=== PATIENT | male | born 1935 | race Caucasian/White ===

== ENCOUNTER → 2017-06-03 | Outpatient (REF) | payer MEDICARE ==
[2016-12-14 12:57] VITALS: BMI 25.9
[~2017-06-03] MED LIST: ALBU8.5H12 IH; ALLO-1 PO; ALLO-2 PO; AZIT-9 PO; BEN100 PO; DIP25 PO; FLUT16SP19 NS; GLUC-135 PO; GUALA600 PO; ISR5 PO; LEVO5TAB7 PO; LOR7.5/325 PO; LORA10TA2 PO; MAX75 PO; MULT-1047 PO; NAPR-1043 PO; PRA20 PO; PRED-314 PO; SENN-284 PO; TAM4 PO; WAR2 PO; ZOL5 PO; [UNRECOGNIZED DRUG - CODE] PO; [UNRECOGNIZED DRUG - OTHER]; astelin
== END ==
LOC: ZZSENDIN 17:22
PROVIDERS: ATTEND Family Medicine
DX: L89.90 Pressure ulcer of unspecified site, unspecified stage (principal)
CPT/HCPCS: 87071; 87073; 87077; 87186; 87205

== ENCOUNTER → 2018-09-08 | Outpatient (REF) | payer MEDICARE ==
[2016-12-14 12:57] VITALS: BMI 25.9
== END ==
LOC: ZZSENDIN 12:40
PROVIDERS: ATTEND Family Medicine
DX: R60.0 Localized edema (principal)
CPT/HCPCS: 85379

== ENCOUNTER → 2018-09-09 | Outpatient (CLI) | payer MEDICARE ==
[2016-12-14 12:57] VITALS: BMI 25.9
--- NOTE | 2018-09-09 14:17 | RADIOLOGY IMAGING REPORT ---
FACILITY: [facility] [place] PATIENT NAME: Jl Mayfield : 1935 MR: [id number] V: [id number] EXAM DATE: [id number] ORDERING PHYSICIAN: SUKHDEV ROSA TECHNOLOGIST: Location: [facility] Patient: Jl Mayfield : 1935 Visit/Account:[id number] Date of Sevice: 09/09/2018 Exam type: US VENOUS LOWER EXT LT History: Left foot ulcer x1 month Comparison: None. Findings: The left lower extremity veins were imaged including the left common femoral vein greater saphenous v ein common femoral vein profunda femoral vein popliteal vein posterior tibial vein peroneal vein ante rior tibial vein revealing no evidence of intraluminal thrombi the veins were compressible and demons trated augmentation IMPRESSION: 1. No sonographic evidence DVT involving the left lower extremity veins Results were called to SUKHDEV Bojorquez at 09/09/2018 2:12 PM. Report Dictated By: Susie Javier MD at 09/09/2018 2:09 PM Report E-Signed By: Susie Javier MD at 09/09/2018 2:13 PM WSN:[email or web address]
== END ==
LOC: US 12:25
PROVIDERS: ATTEND Family Medicine
DX: R60.0 Localized edema (principal)

== ENCOUNTER → 2018-10-08 | Outpatient (REF) | payer MEDICARE ==
[2016-12-14 12:57] VITALS: BMI 25.9
== END ==
LOC: ZZSENDIN 14:43
PROVIDERS: ATTEND Family Medicine
DX: L89.90 Pressure ulcer of unspecified site, unspecified stage (principal); B95.61 Methicillin susceptible Staphylococcus aureus infection as the cause of diseases classified elsewhere
CPT/HCPCS: 87070; 87077; 87186

== ENCOUNTER → 2018-11-30 | Outpatient (CLI) | payer MEDICARE ==
[2016-12-14 12:57] VITALS: BMI 25.9
== END ==
LOC: LAB 10:13
PROVIDERS: ATTEND Family Medicine
DX: L89.90 Pressure ulcer of unspecified site, unspecified stage (principal); B96.89 Other specified bacterial agents as the cause of diseases classified elsewhere; B95.61 Methicillin susceptible Staphylococcus aureus infection as the cause of diseases classified elsewhere
CPT/HCPCS: 87070; 87077; 87186

== ENCOUNTER → 2018-12-01 | Outpatient (CLI) | payer MEDICARE ==
[2016-12-14 12:57] VITALS: BMI 25.9
--- NOTE | 2018-12-01 16:30 | RADIOLOGY IMAGING REPORT ---
FACILITY: [facility] PATIENT NAME: Jl Mayfield : 1935 MR: [id number] V: [id number] EXAM DATE: ORDERING PHYSICIAN: MOR OCAMPO TECHNOLOGIST: Location: [facility] Patient: Jl Mayfield : 1935 Visit/Account:[id number] Date of Sevice: 12/01/2018 MRI left foot Indication: Cellulitis of the left fifth toe. Evaluate for osteomyelitis. Comparison: None available. Technique: Multiplanar multisequence MR images were obtained through the left foot. Findings: Note: Significant motion artifact is present on multiple sequences, limiting assessment of fine detai l. Osseous structures/bone marrow: Motion artifact through the toes partially limits assessment of fine marrow detail. Apparent hazy ma rrow change is present within the distal phalanx tuft of the fourth and fifth toes, which may be aayush factual, although early infection or osteomyelitis may present similarly. Severe first metatarsophalangeal osteoarthrosis is present. Prominent marginal osteophytes are seen. Mild first tarsometatarsal degenerative change is present. Lisfranc joint is congruent on these non weightbearing images. Physiologic joint fluid is present. Ligaments and tendons: Where visualized, no significant plantar plate injury is seen of the metatarsophalangeal joints. Lis franc ligament appears to be intact. No significant distal flexor or extensor tendinosis is present. Distal plantar fascia is intact. Mi ld diffuse muscle atrophy is present suggestive of underlying neuropathy. Adjacent soft tissues: There is moderate dorsal subcutaneous edema present superficial to the level of the metatarsals. The re is limited assessment at the toes. Where visualized, no definite localized fluid collection or ab scess is seen. Mild dorsal skin thickening is noted. No significant intermetatarsal bursitis is demonstrated. No definite soft tissue mass or neuroma is seen. IMPRESSION: 1. Significant motion artifact limits assessment of fine detail. Assessment for subtle findings of osteomyelitis is therefore limited. 2. Apparent hazy marrow change in the tuft of the fourth and fifth distal phalanx is nonspecific and may be artifactual, although early infection or osteomyelitis may present similarly. Please correla te with conventional radiographs to assess the distal cortical margins and/or periosteal reaction. C onsider repeat imaging assessment when the patient can be made more comfortable for the exam. 3. Moderate dorsal subcutaneous edema is greatest at the level of the metatarsals with skin thickeni ng. Cellulitis there may present similarly. 4. No definite evidence for abscess or localized fluid collection. 5. Diffuse muscle atrophy suggests underlying neuropathy. 6. Severe first metatarsophalangeal and mild first tarsometatarsal degenerative change. Report Dictated By: Vijaya Mari MD at 12/01/2018 4:10 PM Report E-Signed By: Vijaya Mari MD at 12/01/2018 4:22 PM WSN:[email or web address]
== END ==
LOC: MRI 00:10
PROVIDERS: ATTEND Family Medicine
DX: L03.032 Cellulitis of left toe (principal)

== ENCOUNTER → 2018-12-06 | Outpatient (CLI) | payer MEDICARE ==
[2016-12-14 12:57] VITALS: BMI 25.9
--- NOTE | 2018-12-06 16:48 | RADIOLOGY IMAGING REPORT ---
FACILITY: [facility] PATIENT NAME: Jl Mayfield : 1935 MR: [id number] V: [id number] EXAM DATE: ORDERING PHYSICIAN: MOR OCAMPO TECHNOLOGIST: Location: [facility] Patient: Jl Mayfield : 1935 Visit/Account:[id number] Date of Sevice: 12/06/2018 Exam type: FOOT 2 VIEW LEFT History: Sores on left foot for three years Comparison: MR left foot December 01, 2018. Findings: Two views of the left foot were submitted are limited as the IP joints are held in plantar flexion pr oducing overlapping shadows. No definite fracture seen. There is a hallux valgus deformity with mod erate degenerative changes at the left first MTP joint. Moderate degenerative changes at the IP join t left great toe also noted IMPRESSION: 1. Limited study as described above. No definite fracture seen Degenerative changes at the left first MTP and IP joints Report Dictated By: Susie Javier MD at 12/06/2018 4:37 PM Report E-Signed By: Susie Javier MD at 12/06/2018 4:41 PM WSN:[email or web address]
== END ==
LOC: RAD 13:25
PROVIDERS: ATTEND Family Medicine
DX: L03.032 Cellulitis of left toe (principal)

== ENCOUNTER 2019-01-18 01:30 | Day surgery (SDC) | payer MEDICARE ==
[2016-12-14 12:57] VITALS: Ht 182.9 cm; Wt 83.5 kg
[~2019-01-18] VITALS: Ht 182.9 cm; Wt 83.5 kg
[2019-01-18] MEDS ORDERED: ceFAZolin(*) 2GM/D5W 50ML 50 ML IVPB ONE (05:50)
[2019-01-18] MEDS ORDERED: LIDOCAINE 2% IV 100 MG/5ML SYR ONE (09:39)
[2019-01-18] MEDS ORDERED: fentaNYL CITR 100 MCG/2 ML AMP ONE (09:43)
[2019-01-18] MEDS ORDERED: PROPOFOL EMUL(*) 10MG/ML 20 ML 20 ML ONE (09:44)
[2019-01-18] MEDS ORDERED: NORMOSOL R SOLN(*) 1000 ML BAG 1,000 ML IV PRN (10:50)
[2019-01-18] MEDS ORDERED: FAMOTIDINE 20 MG TAB PO ONE (10:50)
[2019-01-18] MEDS: LIDOCAINE/SOD BICARB 8.4% SYR ID ONE ×2 (10:50→10:53)
[2019-01-18] MEDS ORDERED: MIDAZOLAM 2 MG/2 ML VIAL IVP PRN (10:50)
[2019-01-18 11:10] VITALS: BP 144/84
[2019-01-18] MEDS ORDERED: BUPIVACAINE 0.5% INJ 50ML VIAL INFIL ONE (11:50)
[2019-01-18] MEDS ORDERED: ONDANSETRON 4 MG/2 ML VIAL ONE (12:02)
[2019-01-18] MEDS ORDERED: DEXAMETHASONE SOD 4 MG/ML VIAL ONE (12:02)
[2019-01-18] MEDS ORDERED: TRAM-420 PO (13:32)
--- NOTE | 2019-01-18 13:35 | Short(Outpt) Discharge Summary ---
Discharge Summary Reason for Hosp/Final Diag: (1) Toe infection Hospital Course & Plan: pt with toe infection presented for amputation of left 3rd and 4th toes. he tolerated the procedure well and will be discharged home when criteria met. Discharge Instructions Home Meds Active Scripts Tramadol Hcl (TRAMADOL HCL) 50 Mg Tablet, 50 MG PO Q6H PRN for PAIN, #14 TAB Prov:JENNIFER SHELDON 01/18/19 Fluticasone Prop 50 Mcg Ns (FLONASE 50 MCG NS) 16 Gm [place].susp, 1 SPRAY NS BID for 30 Days, #1 BOT 1 Refill Prov:SUNDAY MARQUIS MD 12/27/16 Reported Medications [astelin] No Conflict Check, 2 SPRAY NA BID 12/14/16 Allopurinol (Allopurinol) 300 Mg Tablet, 1 TAB PO DAILY 03/16/14 Pravastatin Sod (Pravachol) 20 Mg Tab, 20 MG PO QHS, 0 Refills 06/12/09 Diet: Regular Activity: As Tolerated Special Instructions: walk with off-loading shoe and cane. ok to remove dressing in 2 days and wash in shower, then redress with antibiotic ointment and gauze. take stool softener if taking pain meds. f/u [facility] 2 wks ([phone]). JENNIFER SHELDON Jan 18, 2019 13:35
[2019-01-18 14:00] VITALS: BP 131/76
[2019-01-18 14:40] VITALS: BP 125/76
[2019-01-18 15:00] VITALS: BP 115/71
[2019-01-18 15:46] VITALS: BP 123/75
[2019-01-18 15:49] VITALS: BP 120/73
[2019-01-18] MEDS ORDERED: HEPARIN FLSH (PORT) 500 UN/5ML IVP ONE (17:05)
--- NOTE | 2019-01-19 04:51 | OPERATIVE REPORT 1 ---
EVENT DATE: January 18, 2019 SURGEON: Gama Easton MD ANESTHESIOLOGIST: Linwood Palencia MD ANESTHESIA: General and local in the form of a digital block. EPIC WILLOW SPECIALIST: None. PREOPERATIVE DIAGNOSIS Toe infection of left third and fourth toes. POSTOPERATIVE DIAGNOSIS Toe infection of left third and fourth toes. PROCEDURE PERFORMED Amputation of left third and fourth toes. FLUIDS IV crystalloid. ESTIMATED BLOOD LOSS Minimal. SPECIMENS Left third and fourth toes. COMPLICATIONS None. 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 He has been receiving IV antibiotics. MRI showed possible osteomyelitis in the fourth and fifth toes; however, clinically, the fifth toe has no wound on it. The third and fourth toes do appear swollen. There is a wound on the medial aspect of the third toe, and there is a chronic hardened wound at the distal aspect of the third and fourth toes, and the nails are significantly distorted. I discussed options with the patient, including continuing the IV antibiotics and no amputation; however, he was concerned about the infection spreading, and he would prefer to shorten the course of IV antibiotics. I explained that I thought it was reasonable to remove the toes; however, it is possible that they do not have infection of the bone. He still wished to proceed. Risks and benefits of the procedure were explained and consent was signed. DESCRIPTION OF PROCEDURE Patient was taken to the operating room and placed in the supine position. General anesthesia was administered per anesthesia team. Patient was prepped and draped in normal sterile fashion. Local analgesia was injected in the form of a block for his third and fourth left toes. [place] incision was created. This was taken down sharply through the soft tissue to the bone. Periosteal elevator was used to free the tissue from the bone, and pneumatic saw was used to divide the proximal phalanx through the shaft at a slight bevel of the third and fourth toes. Tendons were put on stretch and divided. Hemostasis was assured. Bone edges were filed. Wounds were closed with interrupted 2-0 nylon stitches. Appropriate dressings were applied. The patient tolerated the procedure well. There were no complications. [facility]
== END 2019-01-18 13:58 | disposition home or self-care (01) ==
LOC: OR 01:30
PROVIDERS: ATTEND Surgery
DX: L08.89 Other specified local infections of the skin and subcutaneous tissue (principal)
CPT/HCPCS: 28825; 88305; 88311; 94667; A9270; J1100; J1642; J2001; J2405; J2704; J3010; J3490; J0690